=== PATIENT | female | born 1995 | race Two or more races ===

== ENCOUNTER 2017-08-06 16:47 | Emergency (ER) | payer OTHER ==
[2017-08-06] MEDS: FAMOTIDINE 20 MG TABLET. PO (17:31)
[2017-08-06] MEDS: CETIRIZINE HCL 10 MG TABLET. PO (17:31)
[2017-08-06] MEDS: DEXAMETHASONE SOD PHOS 20 MG/5 ML VIAL. IM (17:34)
== END 2017-08-06 17:48 | disposition home or self-care (01) ==
LOC: ER 16:47
DX: L25.9 Unspecified contact dermatitis, unspecified cause (principal); Z88.5 Allergy status to narcotic agent; Z91.041 Radiographic dye allergy status
CPT/HCPCS: 96372; 99283-25; J1100

== ENCOUNTER 2017-08-19 15:53 | Emergency (ER) | payer OTHER ==
[2017-08-19 16:37] LABS: URINE HCG POC HCG NEGATIVE (Negative)
[2017-08-19 16:40] LABS: ADD MAN DIFF? NO
[2017-08-19 16:44] LABS: BASO % 0 % (0-3); EOS # 0.5 x10^3/uL (0.0-0.7); EOS % 5 % (0-3); HEMOGLOBIN 13.8 g/dL (12.0-15.5); LYMPH # 1.5 x10^3/uL (1.0-4.8); LYMPH % 16 % (24-48); MEAN CORPUSCULAR HEMOGLOBIN 31 pg (25-35); MEAN CORPUSCULAR HGB CONC 34 g/dL (31-37); MEAN CORPUSCULAR VOLUME 91 fL (79-100); MONO # 0.6 x10^3/uL (0.0-1.1); MONO % 7 % (0-9); NEUT # 6.9 x10^3uL (1.8-7.7); NEUT % 72 % (31-73); PLATELET COUNT 322 x10^3/uL (140-400); RED CELL DISTRIBUTION WIDTH 12.9 % (11.5-14.5); WHITE BLOOD COUNT 9.5 x10^3/uL (4.0-11.0)
[2017-08-19 16:55] LABS: ANION GAP 8 (6-14); BLOOD UREA NITROGEN 13 mg/dL (7-20); BUN/CREATININE RATIO 14 (6-20); CALCIUM 8.5 mg/dL (8.5-10.1); CARBON DIOXIDE 29 mmol/L (21-32); CHLORIDE 103 mmol/L (98-107); CREATININE 0.9 mg/dL (0.6-1.0); GFR 79.8; GLUCOSE 94 mg/dL (70-99); POTASSIUM 3.6 mmol/L (3.5-5.1); SODIUM 140 mmol/L (136-145)
[2017-08-19 16:56] LABS: BILIRUBIN,URINE NEGATIVE (NEG); CLARITY,URINE TURBID; COLOR,URINE YELLOW; GLUCOSE,URINE NEGATIVE (NEG); NITRITE,URINE NEGATIVE (NEG); PH,URINE 7.5; PROTEIN,URINE NEGATIVE (NEG-TRACE)
[2017-08-19 17:01] LABS: ALBUMIN/GLOBULIN RATIO 1.2 (1.0-1.7); ALK PHOS 79 U/L (46-116); ALT (SGPT) 16 U/L (14-59); AST (SGOT) 13 U/L (15-37); TOTAL BILIRUBIN 0.6 mg/dL (0.2-1.0); TOTAL PROTEIN 7.4 g/dL (6.4-8.2)
[2017-08-19 17:03] LABS: BARBITURATES NEG (NEG); BENZODIAZEPINES NEG (NEG); CANNABINOIDS POS (NEG); COCAINE POS (NEG); METHADONE NEG (NEG); OPIATES NEG (NEG); PHENCYCLIDINE NEG (NEG)
[2017-08-19 17:06] LABS: AMPHETAMINE/METHAMPHETAMINE NEG (NEG); ETHANOL, URINE NEG (NEG)
[2017-08-19 17:08] LABS: ETHANOL < 10 mg/dL (0-10)
[2017-08-19 17:22] LABS: AMORPHOUS SEDIMENT,UR PRESENT /HPF; BACTERIA,URINE FEW /HPF (0-FEW); RBC,URINE 0 /HPF (0-2); SQUAMOUS EPITHELIAL CELL,UR FEW /LPF; WBC,URINE OCC /HPF (0-4)
== END 2017-08-19 18:09 | disposition home or self-care (01) ==
LOC: ER 18:09
DX: R45.851 Suicidal ideations (principal); F32.9 Major depressive disorder, single episode, unspecified; Z88.5 Allergy status to narcotic agent; Z91.041 Radiographic dye allergy status
CPT/HCPCS: 36415; 80053; 80307; 81001; 81025; 85025; 87086; 99285; G0480

== ENCOUNTER 2017-10-02 20:59 | Emergency (ER) | payer OTHER | END 2017-10-02 21:31 | disposition home or self-care (01) | LOC: ER 21:31 | DX: S70.12XA Contusion of left thigh, initial encounter (principal); S70.11XA Contusion of right thigh, initial encounter; Z88.5 Allergy status to narcotic agent; Z91.041 Radiographic dye allergy status; X58.XXXA Exposure to other specified factors, initial encounter; Y93.89 Activity, other specified; Y92.89 Other specified places as the place of occurrence of the external cause; Y99.8 Other external cause status | CPT/HCPCS: 99281 ==

== ENCOUNTER 2018-08-12 16:11 | Emergency (ER) | payer OTHER ==
[~2018-08-12] VITALS: Ht 157.5 cm; Wt 46.7 kg
[~2018-08-12 16:11] MED LIST: ACET325T9 PO; FAMO20TA5 PO; HYDR25TA PO; SULF1TAB24 PO
--- NOTE | 2018-08-12 17:28 | PHYS DOC ---
Past Medical History Past Medical History: No Pertinent History Past Surgical History: Other Additional Past Surgical Histo: BREAST AUGMENTATION Alcohol Use: Occasionally Drug Use: None Adult General Chief Complaint Chief Complaint: BACK PAIN - NO INJURY HPI HPI Patient is a 22 year old female who presents with burning with urination, bilateral low back pain, odorous urine and fever 2 days. Patient states she is not taking any medications. She rates her pain 8 out of 10. Review of Systems Review of Systems Constitutional: fever or chills [] Eyes: Denies change in visual acuity, redness, or eye pain [] HENT: Denies nasal congestion or sore throat [] Respiratory: Denies cough or shortness of breath [] Cardiovascular: No additional information not addressed in HPI [] GI: Denies abdominal pain, nausea, vomiting, bloody stools or diarrhea [] : dysuria. Denies hematuria [] Musculoskeletal: Lateral low back pain or joint pain [] Integument: Denies rash or skin lesions [] Neurologic: Denies headache, focal weakness or sensory changes [] All other systems were reviewed and found to be within normal limits, except as documented in this note. Current Medications Current Medications Current Medications Medications (Trade) Dose Ordered Sig/Billy Start Time Stop Time Status Last Admin Dose Admin Acetaminophen (Tylenol) 1,000 mg 1X ONCE 08/12/18 17:30 08/12/18 17:31 DC 08/12/18 17:38 1,000 MG Ceftriaxone Sodium (Rocephin Im) 1 gm 1X ONCE 08/12/18 18:00 08/12/18 18:01 DC Allergies Allergies Allergies Coded Allergies Type Severity Reaction Last Updated Verified Iodinated Contrast- Oral and IV Dye Allergy Intermediate swelling 02/04/17 Yes morphine Allergy Intermediate vomiting 12/16/14 Yes Physical Exam Physical Exam Constitutional: Well developed, well nourished, no acute distress, non-toxic appearance. [] HENT: Normocephalic, atraumatic, bilateral external ears normal, oropharynx moist, no oral exudates, nose normal. [] Eyes: PERRLA, EOMI, conjunctiva normal, no discharge. [] Neck: Normal range of motion, no tenderness, supple, no stridor. [] Cardiovascular:Heart rate regular rhythm, no murmur [] Lungs & Thorax: Bilateral breath sounds clear to auscultation [] Abdomen: Bowel sounds normal, soft, no tenderness, no masses, no pulsatile masses. [] Skin: Warm, dry, no erythema, no rash. [] Back: No tenderness, + CVA tenderness. [] Extremities: No tenderness, no cyanosis, no clubbing, ROM intact, no edema. [] Neurologic: Alert and oriented X 3, normal motor function, normal sensory function, no focal deficits noted. [] Psychologic: Affect normal, judgement normal, mood normal. [] Current Patient Data Vital Signs Vital Signs Date Time Temp Pulse Resp B/P (MAP) Pulse Ox O2 Delivery O2 Flow Rate FiO2 08/12/18 17:41 103.0 126 16 118/68 (85) 99 Room Air 103.0 Lab Values Laboratory Tests Test 08/12/18 17:25 08/12/18 17:30 08/12/18 17:54 Urine Collection Type Unknown Urine Color Azeb Urine Clarity Clear Urine pH 6.0 Urine Specific [place] >=1.030 Urine Protein 30 mg/dL (NEG-TRACE) Urine Glucose (UA) Negative mg/dL (NEG) Urine Ketones (Stick) >=80 mg/dL (NEG) Urine Blood Small (NEG) Urine Nitrite Negative (NEG) Urine Bilirubin Moderate (NEG) Urine Urobilinogen Dipstick 1.0 mg/dL (0.2 mg/dL) Urine Leukocyte Esterase Small (NEG) Urine RBC Occ /HPF (0-2) Urine WBC 5-10 /HPF (0-4) Urine Squamous Epithelial Cells Mod /LPF Urine Bacteria Moderate /HPF (0-FEW) Urine Mucus Marked /LPF POC Urine HCG, Qualitative Hcg negative (Negative) White Blood Count 7.8 x10^3/uL (4.0-11.0) Red Blood Count 5.16 x10^6/uL (3.50-5.40) Hemoglobin 16.6 g/dL (12.0-15.5) H Hematocrit 49.1 % (36.0-47.0) H Mean Corpuscular Volume 95 fL (79-100) Mean Corpuscular Hemoglobin 32 pg (25-35) Mean Corpuscular Hemoglobin Concent 34 g/dL (31-37) Red Cell Distribution Width 12.8 % (11.5-14.5) Platelet Count 228 x10^3/uL (140-400) Neutrophils (%) (Auto) 85 % (31-73) H Lymphocytes (%) (Auto) 6 % (24-48) L Monocytes (%) (Auto) 9 % (0-9) Eosinophils (%) (Auto) 0 % (0-3) Basophils (%) (Auto) 0 % (0-3) Neutrophils # (Auto) 6.6 x10^3uL (1.8-7.7) Lymphocytes # (Auto) 0.5 x10^3/uL (1.0-4.8) L Monocytes # (Auto) 0.7 x10^3/uL (0.0-1.1) Eosinophils # (Auto) 0.0 x10^3/uL (0.0-0.7) Basophils # (Auto) 0.0 x10^3/uL (0.0-0.2) Platelet Estimate Pending Sodium Level 131 mmol/L (136-145) L Potassium Level 4.1 mmol/L (3.5-5.1) Chloride Level 97 mmol/L (98-107) L Carbon Dioxide Level 27 mmol/L (21-32) Anion Gap 7 (6-14) Blood Urea Nitrogen 11 mg/dL (7-20) Creatinine 1.0 mg/dL (0.6-1.0) Estimated GFR (Cockcroft-Gault) 70.0 Glucose Level 123 mg/dL (70-99) H Calcium Level 9.1 mg/dL (8.5-10.1) Laboratory Tests 08/12/18 17:54 Laboratory Tests 08/12/18 17:54 EKG EKG [] Radiology/Procedures Radiology/Procedures [] Course & Med Decision Making Course & Med Decision Making Patient is a 22 year old female who presents with burning with urination, bilateral low back pain, odorous urine and fever 2 days. Patient states she is not taking any medications. She rates her pain 8 out of 10. Alert and oriented. Ambulatory with steady gait. CVA tenderness. Abdomen is soft and nontender. States she has a history of kidney infections. Patient states this feels like a kidney infection. Patient is given 1000mg Tylenol in the ED. Patient denies nausea, vomiting, diarrhea. 103.0 fever, Heart rate 126. Patient is given 1g Rocephin and a prescription for ciprofloxacin. Patient is given ice water to drink of which she is keeping down. 1755: Heart is down to 109. Vitals signs are stable. Blood work unremarkable. Patient is stable and discharged home and to follow up with her primary care doctor within the next 3 days. Patient must drink plenty of fluids and take ibuprofen or Tylenol to keep her fever down in order to avoid dehydration. She should return for worsening of symptoms. Dragon Disclaimer Dragon Disclaimer This electronic medical record was generated, in whole or in part, using a voice recognition dictation system. Departure Departure Impression: Primary Impression: UTI (urinary tract infection) Disposition: HOME, SELF-CARE Condition: STABLE Referrals: NOE ABRAHAM MD (PCP) Patient Instructions: Urinary Tract Infection Additional Instructions: Take all of her antibiotic as prescribed. Drink plenty of fluids. Take ibuprofen or Tylenol for pain and fever. Scripts Ciprofloxacin Hcl (CIPRO) 500 Mg Tablet 1 TAB PO BID, #20 TAB Prov: ROSS TERRAZAS APRN 08/12/18 Problem Qualifiers Primary Impression: UTI (urinary tract infection) Urinary tract infection type: site unspecified Hematuria presence: without hematuria Qualified Codes: N39.0 - Urinary tract infection, site not specified ROSS TERRAZAS APRN Aug 12, 2018 17:28
[2018-08-12] MEDS ORDERED: ACETAMINOPHEN 500 MG TABLET PO ONE (17:30)
[2018-08-12] MEDS ORDERED: CEPH-264 PO (17:31)
[2018-08-12 17:36] LABS: BILIRUBIN,URINE MODERATE (NEG); CLARITY,URINE CLEAR; COLOR,URINE AMBER; NITRITE,URINE NEGATIVE (NEG); PROTEIN,URINE 30 mg/dL (NEG-TRACE)
[2018-08-12 17:41] VITALS: BP 118/68
[2018-08-12] MEDS ORDERED: CIPR500T94 PO (17:42)
[2018-08-12 17:46] LABS: BACTERIA,URINE MODERATE /HPF (0-FEW); RBC,URINE OCC /HPF (0-2); SQUAMOUS EPITHELIAL CELL,UR MOD /LPF
[2018-08-12] MEDS ORDERED: cefTRIAXone IM 1 GM VIAL IM ONE (18:00)
[2018-08-12 18:08] LABS: BASO % 0 % (0-3); EOS % 0 % (0-3); HEMATOCRIT 49.1 % (36.0-47.0); HEMOGLOBIN 16.6 g/dL (12.0-15.5); LYMPH # 0.5 x10^3/uL (1.0-4.8); LYMPH % 6 % (24-48); MEAN CORPUSCULAR HEMOGLOBIN 32 pg (25-35); MEAN CORPUSCULAR HGB CONC 34 g/dL (31-37); MEAN CORPUSCULAR VOLUME 95 fL (79-100); MONO # 0.7 x10^3/uL (0.0-1.1); MONO % 9 % (0-9); NEUT # 6.6 x10^3uL (1.8-7.7); NEUT % 85 % (31-73); PLATELET COUNT 228 x10^3/uL (140-400); RED BLOOD COUNT 5.16 x10^6/uL (3.50-5.40); RED CELL DISTRIBUTION WIDTH 12.8 % (11.5-14.5); WHITE BLOOD COUNT 7.8 x10^3/uL (4.0-11.0)
[2018-08-12 18:22] LABS: CALCIUM 9.1 mg/dL (8.5-10.1); POTASSIUM 4.1 mmol/L (3.5-5.1)
[2018-08-12 18:32] LABS: % BANDS 7 % (0-9); % LYMPHS 4 % (24-48); % MONOS 13 % (0-10); % SEGS 76 % (35-66)
[2018-08-12 18:33] LABS: PLT ESTIMATE ADEQUATE (ADEQUATE)
== END 2018-08-12 18:51 | disposition home or self-care (01) ==
LOC: ER 16:11
DX: N39.0 Urinary tract infection, site not specified (principal); Z91.041 Radiographic dye allergy status; Z88.5 Allergy status to narcotic agent
CPT/HCPCS: 36415; 80048; 81001; 81025; 85007; 85025; 87086; 96372; 99283; J0696

== ENCOUNTER → 2021-07-25 | Outpatient (CLI) | payer OTHER ==
[~2021-07-25] MED LIST changes: +CEPH-264 PO; +CIPR500T94 PO
== END ==
LOC: SPEC 16:58
PROVIDERS: ATTEND Registered Nurse
DX: O09.72 Supervision of high risk pregnancy due to social problems, second trimester (principal)
CPT/HCPCS: 87086; 87491; 87591

== ENCOUNTER → 2021-08-10 | Outpatient (CLI) | payer OTHER ==
--- NOTE | 2021-08-10 08:39 | RAD ---
Study: US OB >14 WEEKS Clinical Indication: Screening for malformation. Comparison: 06/23/2021 Technique: Multiple grayscale images, color Doppler, and M-mode images of the uterus are obtained. Findings: Single live intrauterine gestation in breech presentation. The placenta is anterior in location witho ut placenta previa. Within normal limits amniotic fluid volume. Closed cervic measuring 3.8 cm in [facility]. Biometrical data: BPD = 4.38 cm for 19 weeks 2 days HC = 16.92 cm for 19 weeks 4 days AC = 14.47 cm for 19 weeks 6 days FL = 3.03 cm for 19 weeks 3 days CI ratio = 79.9 HC/AC ratio = 1.17 FL/HC ratio = 17.9 The estimated sonographic gestational age is 19 weeks 4 days for a delivery date of 12/31/2021. The es timated date of delivery provided by the last menstrual period is 12/31/2021. Estimated weight of 301 grams. 4 chamber heart with cardiac activity. The heart rate of 135 beats per minute. Bilateral upper and lower extremities are identified. Three-vessel cord with cord insertion visualized. stomach and urinary bladder are identified. Both kidneys are seen. The spine and brain are unremarkable. No gross anatomic abnormality. Impression: 1. Single live intrauterine gestation with estimated sonographic gestational age of 19 weeks 4 days corresponding to a delivery date of 12/31/2021. Estimated delivery date by last menstrual period also of 12/31/2021. 2. Breech presentation at this time. Anterior placenta without previa. Within normal limits amniotic fluid volume. Closed cervix measuring 3.8 cm in length. 3. No malformation identified on the survey. Electronically signed by: SALOMÓN BHATIA MD (08/10/2021 8:36 AM) [facility]
== END ==
LOC: US 07:52
PROVIDERS: ATTEND Registered Nurse
DX: O09.72 Supervision of high risk pregnancy due to social problems, second trimester (principal); O32.1XX0 Maternal care for breech presentation, not applicable or unspecified; Z3A.19 19 weeks gestation of pregnancy
CPT/HCPCS: 76805

== ENCOUNTER → 2021-10-17 | Outpatient (CLI) | payer OTHER ==
[2021-10-17 11:26] LABS: BASO % 0 % (0-3); EOS # 0.1 x10^3/uL (0.0-0.7); EOS % 1 % (0-3); HEMATOCRIT 27.7 % (36.0-47.0); HEMOGLOBIN 9.3 g/dL (12.0-15.5); LYMPH # 1.1 x10^3/uL (1.0-4.8); LYMPH % 12 % (24-48); MEAN CORPUSCULAR HEMOGLOBIN 31 pg (25-35); MEAN CORPUSCULAR HGB CONC 34 g/dL (31-37); MEAN CORPUSCULAR VOLUME 92 fL (79-100); MONO # 0.5 x10^3/uL (0.0-1.1); MONO % 6 % (0-9); NEUT # 7.2 x10^3/uL (1.8-7.7); NEUT % 80 % (31-73); PLATELET COUNT 76 x10^3/uL (140-400); RED BLOOD COUNT 3.01 x10^6/uL (3.50-5.40); RED CELL DISTRIBUTION WIDTH 12.2 % (11.5-14.5)
== END ==
LOC: LAB 10:07
PROVIDERS: ATTEND Registered Nurse
DX: Z34.93 Encounter for supervision of normal pregnancy, unspecified, third trimester (principal)
CPT/HCPCS: 36415; 82947; 82950; 85025; 86592; 86850; 86900; 86901

== ENCOUNTER → 2021-11-07 | Outpatient (CLI) | payer OTHER ==
[2021-11-07 11:45] LABS: BASO % 0 % (0-3); EOS # 0.1 x10^3/uL (0.0-0.7); EOS % 1 % (0-3); HEMOGLOBIN 10.6 g/dL (12.0-15.5); LYMPH # 1.2 x10^3/uL (1.0-4.8); LYMPH % 13 % (24-48); MEAN CORPUSCULAR HEMOGLOBIN 31 pg (25-35); MEAN CORPUSCULAR HGB CONC 33 g/dL (31-37); MEAN CORPUSCULAR VOLUME 93 fL (79-100); MONO # 0.6 x10^3/uL (0.0-1.1); MONO % 7 % (0-9); NEUT # 7.2 x10^3/uL (1.8-7.7); NEUT % 79 % (31-73); PLATELET COUNT 268 x10^3/uL (140-400); RED BLOOD COUNT 3.46 x10^6/uL (3.50-5.40); WHITE BLOOD COUNT 9.1 x10^3/uL (4.0-11.0)
== END ==
LOC: LAB 11:21
PROVIDERS: ATTEND Registered Nurse
DX: O99.113 Other diseases of the blood and blood-forming organs and certain disorders involving the immune mechanism complicating pregnancy, third trimester (principal); D69.6 Thrombocytopenia, unspecified; Z3A.30 30 weeks gestation of pregnancy
CPT/HCPCS: 36415; 85025

== ENCOUNTER → 2021-11-21 | Outpatient (CLI) | payer OTHER ==
--- NOTE | 2021-11-22 08:29 | RAD ---
OB ultrasound surgery Mr. Limited examination HISTORY: and small for dates Sonographic examination of the was performed by transabdominal technique. Multiple static i mages were obtained. FINDINGS: There is a single live intrauterine . The heart is confirmed at 147 bpm. Visualization of fe vanita structures is limited at this advanced gestational age. There is a cephalic position. There is an anterior placenta. The amniotic fluid volume appears normal and the amount fluid index is 15 cm. Translabial scanning shows that the cervix is normal and measures 4.2 cm in length. The LMP of 03/26/2021 corresponds with a 34 week 2 day gestational age and estimated date confinement o f December 31, 2021. The estimated size by ultrasound is 34 weeks 4 days with estimated date of confineme nt of December 29, 2021. The estimated weight is 5 lbs. 4 oz. +/- 6 ounces Assessment of weight percentile is 43 The measurements are as follows: BPD 8.8 cm 35 weeks 3 days Head circumference 32 cm 35 weeks 6 days Double circumference 31 cm 34 weeks 5 days Femur length 6.3 cm 32 weeks 3 days IMPRESSION: 1. Single live intrauterine with cephalic position. 2. 34 weeks 2 days gestational age by LMP has appropriate size by ultrasound. 3. Appropriate interval of growth since the August 10 2021 examination. 4. Femur length is at 5 percent which was not seen previously. Electronically signed by: Deepak Mason III, MD (11/22/2021 8:26 AM) [facility]
== END ==
LOC: US 15:33
PROVIDERS: ATTEND Registered Nurse
DX: O26.843 Uterine size-date discrepancy, third trimester (principal); Z3A.34 34 weeks gestation of pregnancy
CPT/HCPCS: 76805

== ENCOUNTER → 2021-12-12 | Outpatient (CLI) | payer OTHER ==
[2021-12-12 09:48] LABS: BASO % 0 % (0-3); EOS # 0.1 x10^3/uL (0.0-0.7); EOS % 1 % (0-3); HEMATOCRIT 33.4 % (36.0-47.0); HEMOGLOBIN 11.3 g/dL (12.0-15.5); LYMPH # 1.4 x10^3/uL (1.0-4.8); LYMPH % 12 % (24-48); MEAN CORPUSCULAR HEMOGLOBIN 32 pg (25-35); MEAN CORPUSCULAR HGB CONC 34 g/dL (31-37); MEAN CORPUSCULAR VOLUME 94 fL (79-100); MONO # 0.8 x10^3/uL (0.0-1.1); MONO % 7 % (0-9); NEUT # 9.1 x10^3/uL (1.8-7.7); NEUT % 80 % (31-73); PLATELET COUNT 226 x10^3/uL (140-400); RED BLOOD COUNT 3.57 x10^6/uL (3.50-5.40); WHITE BLOOD COUNT 11.4 x10^3/uL (4.0-11.0)
== END ==
LOC: LAB 09:15
PROVIDERS: ATTEND Registered Nurse
DX: O99.013 Anemia complicating pregnancy, third trimester (principal); Z3A.36 36 weeks gestation of pregnancy
CPT/HCPCS: 36415; 85025

== ENCOUNTER → 2021-12-12 | Outpatient (CLI) | payer OTHER | LOC: SPEC 13:24 | PROVIDERS: ATTEND Registered Nurse | DX: Z34.93 Encounter for supervision of normal pregnancy, unspecified, third trimester (principal) | CPT/HCPCS: 87653 ==